=== PATIENT | female | born 1985 | race Caucasian/White ===

== ENCOUNTER → 2016-09-23 | Outpatient (CLI) | payer OTHER ==
[~2016-09-23] MED LIST: ACET50TA PO; DOCU10CA PO; IBUP80TA PO; MOM30SS PO; PRENTAB7 PO
[2016-09-23 17:47] LABS: BASO % 0.2 % (0.0-1.0); EOS # 0.1 K/mm3 (0.0-0.50); EOS % 1.2 % (0.0-3.0); LARGE UNSTAINED CELL # 0.1 K/mm3 (0.0-0.4); LARGE UNSTAINED CELL % 0.7 % (0.0-4.0); LYMPH # 1.4 K/mm3 (1.5-4.5); LYMPH % 16.9 % (24.0-44.0); MEAN CORPUSCULAR HEMOGLOBIN 28.6 pg (27.0-33.0); MEAN CORPUSCULAR HGB CONC 33.7 g/dl (32.0-36.5); MONO # 0.3 K/mm3 (0.0-0.8); MONO % 3.1 % (0.0-5.0); NEUTROPHILS # 6.4 K/mm3 (1.8-7.7); PLATELET COUNT, AUTOMATED 297 k/mm3 (150-450); RED CELL DISTRIBUTION WIDTH 13.5 % (11.5-14.5); WHITE BLOOD COUNT 8.1 K/mm3 (4.0-10.0)
[2016-09-26 10:40] LABS: HBsAg Prenatal NEGATIVE (NEGATIVE)
[2016-09-26 14:18] LABS: CONTROL LINE INT CTR LINE PRESENT; HIV SCRN NEGATIVE (NEGATIVE); HIV SCRN1 NEGATIVE (NEGATIVE)
== END ==
LOC: M SMT 13:36
PROVIDERS: ATTEND Obstetrics & Gynecology
DX: Z34.81 Encounter for supervision of other normal pregnancy, first trimester (principal)

== ENCOUNTER → 2016-10-04 | Outpatient (CLI) | payer OTHER | LOC: M SMT 13:51 | PROVIDERS: ATTEND Obstetrics & Gynecology | DX: Z36 Encounter for antenatal screening of mother (principal); Z3A.00 Weeks of gestation of pregnancy not specified ==

== ENCOUNTER → 2016-11-14 | Outpatient (CLI) | payer MEDICAID ==
--- NOTE | 2016-11-14 15:18 | REP ---
Obstetric ultrasound for anatomy: There is a single intrauterine gestation in a breech presentation. There is motion and cardiac activity. The heart rate is 153 beats per minute. The placenta is anterior. There is no placenta previa or abruptio. The placenta is grade zero maturity. The amniotic fluid volume subjectively is normal. The cervix is 3.4 cm length. By today's ultrasound the gestational age is 19 weeks 1 day with an FRANCINE of 04/09/2017. Gestational age by LMP is 18 weeks 5 days. weight is 283 grams (0 pounds, 9 ounces). This is the 68th percentile for 18 weeks 5 days. The following anatomic structures are identified and are unremarkable: Cranium, choroid plexus, cavum, cerebellum, posterior fossa, face, facial profile, lungs, four-chamber heart, cardiac right and left ventricular outflow tracts, diaphragm, stomach, cord insertion, three-vessel cord, kidneys, bladder, and upper lower extremities. The spine is not optimally demonstrated because of position. A followup study dedicated to the spine might be considered. Otherwise, there are no anomalies. Signed by Danilo Beltran MD 11/14/2016 03:09 P
== END ==
LOC: M SMT 13:45
PROVIDERS: ATTEND Advanced Practice Midwife
DX: Z36 Encounter for antenatal screening of mother (principal); Z3A.19 19 weeks gestation of pregnancy

== ENCOUNTER → 2016-12-19 | Outpatient (CLI) | payer MEDICAID ==
--- NOTE | 2016-12-19 17:10 | REP ---
OB ULTRASOUND: REASON: Followup anatomy. The prior examination failed to adequately visualize the spine for which this examination was performed to followup. Multiple ultrasonographic images of the gravid uterus show a single living intrauterine gestation in the cephalic presentation. Doppler interrogation of the heart shows a heart rate of 144 beats per minute. The placenta is anterior and not low lying. The subjective aminotic fluid volume is within normal limits. The cervix measures 3.2 cm in length and it is closed. Evaluation of the maternal adnexal spaces showed no abnormalities. BPD 6.0 cm = 24 weeks 3 days HC 22.1 cm = 24 weeks 1 day AC 19.4 cm = 24 weeks 1 day FL 4.3 cm = 24 weeks 0 days Estimated weight is 661 grams which is at the 56th percentile for a 23 week 5 day gestational age. The spine was imaged and was found to be within normal limits. IMPRESSION: Single living intrauterine gestation as described above with an estimated gestational age of 23 weeks 6 days via composite criteria and an estimated date of delivery of 04/11/2017 by today's exam. The spine was seen to be normal. Signed by Costa Palm DO 12/19/2016 05:13 P
== END ==
LOC: M SMT 13:42
PROVIDERS: ATTEND Advanced Practice Midwife
DX: Z36 Encounter for antenatal screening of mother (principal); Z3A.23 23 weeks gestation of pregnancy

== ENCOUNTER → 2017-01-03 | Outpatient (CLI) | payer MEDICAID, OTHER ==
[2017-01-03 11:07] LABS: MEAN CORPUSCULAR HEMOGLOBIN 28.4 pg (27.0-33.0); MEAN CORPUSCULAR HGB CONC 32.9 g/dl (32.0-36.5); MEAN CORPUSCULAR VOLUME 86.2 fl (80.0-96.0); RED CELL DISTRIBUTION WIDTH 12.9 % (11.5-14.5)
== END ==
LOC: M LAB 09:06
PROVIDERS: ATTEND Advanced Practice Midwife
DX: Z36 Encounter for antenatal screening of mother (principal); Z3A.00 Weeks of gestation of pregnancy not specified

== ENCOUNTER → 2017-03-20 | Outpatient (REF) | payer OTHER | LOC: M LAB REF 17:07 | PROVIDERS: ATTEND Advanced Practice Midwife | DX: Z34.83 Encounter for supervision of other normal pregnancy, third trimester (principal) ==

== ENCOUNTER 2017-04-08 01:04 | Inpatient (IN) | payer OTHER ==
[~2017-04-08] VITALS: Ht 167.6 cm; Wt 76.0 kg
[2017-04-08] VITALS (26 sets, daily range): BP systolic 106–162; BP diastolic 62–94
[2017-04-08 02:04] LABS: MEAN CORPUSCULAR HEMOGLOBIN 21.5 pg (27.0-33.0); MEAN CORPUSCULAR HGB CONC 30.5 g/dl (32.0-36.5); MEAN CORPUSCULAR VOLUME 70.7 fl (80.0-96.0); RED CELL DISTRIBUTION WIDTH 17.3 % (11.5-14.5); WHITE BLOOD COUNT 13.8 K/mm3 (4.0-10.0)
[2017-04-08] MEDS ORDERED: LR 1,000 ML IV SCH (02:10)
[2017-04-08] MEDS ORDERED: FENTANYL 2MCG/ML ROPIVACAINE 0.2% IN 0.9% NACL 200ML IVBAG As Ordered ONE (02:10)
[2017-04-08] MEDS ORDERED: ePHEDrine SULFATE 25 MG/5 ML(5MG/ML) SYRINGE IV PRN (02:40)
[2017-04-08] MEDS ORDERED: EPIDURAL COMMENT XX SCH (02:40)
[2017-04-08] MEDS ORDERED: NALOXONE INJ 0.4 MG/1 ML VIAL (J2310) IV PRN (02:40)
[2017-04-08] MEDS ORDERED: REFRIGERATOR IV KEYS XX PRN (02:40)
[2017-04-08] MEDS ORDERED: ONDANSETRON 4MG/2ML VIAL (J2405) IV PRN (02:40)
[2017-04-08] MEDS ORDERED: EPIDURAL/PCA KEYS XX PRN (02:40)
[2017-04-08] MEDS ORDERED: FENTANYL/ROPIVACAINE/NACL BAG 200 ML EPIDURAL SCH (02:40)
[2017-04-08] MEDS ORDERED: diphenhydrAMINE INJ 50MG/ML VIAL (J1200) IV PRN (02:40)
--- NOTE | 2017-04-08 03:03 | HPE ---
DATE OF ADMISSION: 04/08/2017 REASON FOR ADMISSION: Labor. HISTORY OF PRESENT ILLNESS: Mrs. Escobar is a 31-year-old 4, para 3, who presents at 39 weeks 3 days estimated gestational age with complaints of contractions. She reports contractions that started earlier today that have increased in intensity and frequency. She denies any vaginal bleeding or leakage of fluid. Her course has been unremarkable. She initiated care in the first trimester and has been appropriate throughout. PAST MEDICAL HISTORY: None. PAST SURGICAL HISTORY: None. PAST OBSTETRICAL HISTORY: She is a 4, para 3. She had three term vaginal deliveries. She is proven to 9 pounds 13 ounces. MEDICATIONS: Include vitamins. ALLERGIES: She has no known drug allergies. SOCIAL HISTORY: She lives at home with her and three children. She denies any alcohol, tobacco, or drug use during her . PHYSICAL EXAMINATION: VITAL SIGNS: Stable. She is afebrile. She has a category 1 rate tracing with contractions on tachometer. GENERAL APPEARANCE: No acute distress. LUNGS: Clear to auscultation bilaterally. CARDIOVASCULAR: Heart is regular rate and rhythm. ABDOMEN: Gravid. Estimated weight (EFW) 3900 grams. CERVICAL EXAM: She was 6 cm dilated, 90% effaced, 0 station. LABORATORIES: Her blood type is A positive. Antibody screen is negative. Rubella is immune. RPR is nonreactive. Hepatitis surface antigen is negative. HIV is negative. Hepatitis C is nonreactive. Chlamydia and gonorrhea screens are negative. She had a normal 1-hour Glucola. She is group B Streptococcus (GBS) negative. ASSESSMENT: 1. Mrs. Escobar is a 31-year-old 4, para 3 at 39 weeks 3 days estimated gestational age in active labor. 2. Reassuring status. PLAN: 1. Admit to labor and delivery. Complete blood count (CBC), RPR, type and screen. 2. Patient is a good candidate for an epidural. 3. Anticipate spontaneous vaginal delivery.
[2017-04-08] MEDS ORDERED: OXYTOCIN 30 UNITS IN 0.9% NaCl 500ML IV BAG (J2590) As Ordered ONE (04:41)
[2017-04-08] MEDS ORDERED: OXYTOCIN DRIP 30 UNITS in APPROPRIATE DILUENT 1 EA IV SCH (06:44)
[2017-04-08] MEDS ORDERED: ANUSOL HC CREAM 30GM TOP PRN (06:45)
[2017-04-08] MEDS ORDERED: MEASLES,MUMPS,RUBELLA VACCINE INJ (MMR-II) (90707) SC SCH (06:45)
[2017-04-08] MEDS ORDERED: DIBUCAINE 1% OINTMENT 30GM TOP PRN (06:45)
[2017-04-08] MEDS ORDERED: RHOGAM 300 MCG (1500 IU) INJ (J2790) IM SCH (06:45)
[2017-04-08] MEDS ORDERED: DOCUSATE SODIUM 100 MG CAP PO PRN (06:45)
[2017-04-08] MEDS ORDERED: ACETAMINOPHEN 500 MG TAB PO PRN (06:45)
[2017-04-08] MEDS ORDERED: MOM 30ML SUSPENSION UDC PO PRN (06:45)
[2017-04-08] MEDS ORDERED: METHYLERGONOVINE MALEATE 0.2 MG TAB PO PRN (06:45)
[2017-04-08] MEDS ORDERED: IBUPROFEN 800 MG TAB PO PRN (06:45)
--- NOTE | 2017-04-08 07:22 | DN ---
DATE OF DELIVERY: 04/08/2017 Time of : 05. Gender: Female. 9 and 9. Weight 7 pounds 10 ounces, 3444 grams. Anesthesia: Epidural. Estimated blood loss: 300 mL. Counts: Five laparotomy sponges counted for prior and after delivery. On 04/08/2017 at 0552, Mrs. Escobar, a 31-year-old, 4 now para 4 had spontaneous vaginal delivery of a live born female . 9 and 9. Weight 7 pounds 10 ounces, 3444 grams. Head was delivered OA over intact peritoneal followed by delivery of anterior and posterior shoulder and corpus. Infant was handed to mother with good cry. Cord was clamped times two, was cut by the father of the baby under my direction. Cord blood was obtained. Placenta was drained and delivered grossly intact. A premixed bag of 500 mL of normal saline with 30 units of Pitocin was bolused along with uterine massage until the uterus was firm. On inspection, cervix, vagina, perineum was grossly intact and hemostatic. Mother and baby recovering in stable condition. The couple has decided to name their daughter Rekha.
[2017-04-08] MEDS: PRENATAL VITAMINS CHEWABLE TABLET PO SCH (09:45)
[2017-04-09 05:53] VITALS: BP 116/74
[2017-04-09] MEDS: PRENATAL VITAMINS CHEWABLE TABLET PO SCH (07:39)
== END 2017-04-09 14:00 | disposition home or self-care (01) | DRG 560 ==
LOC: M LDO 01:04 → M LDI 01:25 → M OBS 07:54
PROVIDERS: ADMIT Obstetrics & Gynecology; ATTEND Obstetrics & Gynecology
PROC: 10E0XZZ Delivery of Products of Conception, External Approach (ICD-10-PCS; principal; 2017-04-08)
DX: O80 Encounter for full-term uncomplicated delivery (principal); Z37.0 Single live birth; Z3A.39 39 weeks gestation of pregnancy